=== PATIENT | male | born 1985 | race Two or more races ===

== ENCOUNTER 2020-09-22 12:15 | Emergency (ER) | payer OTHER ==
[~2020-09-22] VITALS: Ht 190.5 cm; Wt 72.6 kg
[2020-09-22 12:26] VITALS: BP 124/76
[2020-09-22] MEDS ORDERED: TETANUS-DIPTH-ACEL PERTUSSIS 0.5ML SYR Tdap IM ONE (13:45)
== END 2020-09-22 14:09 | disposition home or self-care (01) ==
LOC: ER 12:15
DX: S61.240A Puncture wound with foreign body of right index finger without damage to nail, initial encounter (principal); X58.XXXA Exposure to other specified factors, initial encounter; Y93.89 Activity, other specified; Y92.69 Other specified industrial and construction area as the place of occurrence of the external cause; Y99.8 Other external cause status
CPT/HCPCS: 10120; 73140; 90471; 90715